=== PATIENT | male | born 1945 | race Caucasian/White ===

== ENCOUNTER → 2023-07-19 | Emergency (ER) | payer BC, OTHER ==
[~2023-07-19] MED LIST: ACETAMINOPHEN 325 MG TABLET ONE; NA CHLORIDE 0.9% 1,000 ML ONE
[2023-07-19 09:00] LABS: Absolute Lymphocytes (CBC) 0.4 K/uL (0.7-4.9); Hematocrit 39.2 % (39.6-49.0); Lymphocytes % 6.4 % (15.3-44.8); MPV 8.2 fL (7.6-11.3); Platelets 205 thou/uL (152-406); RBC Red Blood Cell Count 3.95 M/uL (4.33-5.43)
--- NOTE | 2023-07-19 09:07 | RAD REPORT ---
EXAM DESCRIPTION: CT - Head Brain Wo Cont - 07/19/2023 8:56 am CLINICAL HISTORY: AMS COMPARISON: No comparisons TECHNIQUE: All CT scans are performed using dose optimization technique as appropriate and may inclu de automated exposure control or mA/KV adjustment according to patient size. FINDINGS: No intracranial hemorrhage, hydrocephalus or extra-axial fluid collection.No areas of brai n edema or evidence of midline shift. Mild chronic small vessel ischemic changes. The paranasal sinuses and mastoids are clear. The calvarium is intact. IMPRESSION: No acute intracranial abnormality.
[2023-07-19 09:14] LABS: Albumin 2.9 g/dL (3.4-5.0); Bilirubin Total 0.9 mg/dL (0.2-1.0); Potassium 3.5 mEq/L (3.5-5.1); Protein, Total 6.4 g/dL (6.4-8.2); Troponin High Sensitivity 25.3 pg/mL (<58.9)
[2023-07-19 09:15] LABS: Protime INR 1.03
[2023-07-19 09:24] LABS: Specific Gravity 1.016 (1.005-1.030); Urine Bacteria None Seen /HPF (<20); Urine Bilirubin NEGATIVE (Negative); Urine Blood Negative (Negative); Urine Clarity Clear (Clear); Urine Color Light-Yellow (Yellow); Urine Glucose NEGATIVE (Negative); Urine Mucus Slight /HPF (None Seen); Urine Protein NEGATIVE (Negative); Urine RBC <5 /HPF (None Seen); Urine Urobilinogen 1+ (Normal)
[2023-07-19 09:27] LABS: Blood Morphology Comment NOT SEEN (NOT SEEN); Platelet Estimate ADEQ; White Blood Cell Scan OK (OK)
--- NOTE | 2023-07-19 09:47 | RAD REPORT ---
EXAM DESCRIPTION: RAD - Chest Single View - 07/19/2023 9:36 am CLINICAL HISTORY: AMS/Cough COMPARISON: No comparisons FINDINGS: Lines: None. Lungs: Blunting of the left costophrenic angle probably due to configuration of patient's pericardial fat pad. There is also likely some left basilar atelectasis. No edema or consolidative airspace dise ase. . Pleural: No significant pleural effusions or pneumothorax. Cardiac: The heart size is within normal limits. Mediastinum: Within normal limits. Bones: No acute fractures. Other: None IMPRESSION: No definite acute cardiopulmonary disease. Probable atelectasis at the left lung base .
[2023-07-19 10:10] LABS: SARS-CoV-2 Antigen Rapid Res Positive (Negative)
--- NOTE | 2023-07-19 10:24 | EDPHYS ---
Physician Documentation [facility] Name: Mono Hernandez Age: 77 yrs Sex: Male : 1945 Arrival Date: 07/19/2023 Time: 07:43 Bed 3 Private MD: ED Physician Bernarda Castanon HPI: 07/19 08:31 This 77 yrs old Male presents to ER via EMS with complaints of Altered Mental Status, sp3 Cough, unsteady gait. 08:31 77-year-old male with unknown past medical history presents via EMS for altered mental sp3 status, unsteady gait and cough. Patient had recent fall with broken ribs and vertebrae and was discharged to home. Son reports the above symptoms and activated EMS. Currently we do not have patient's past medical history or medication list as patient has no prior history at this facility. History, physical and ROS are limited secondary to current altered mental status/probable chronic dementia. We will be able to obtain further history once son arrives to the ED. Will add on any with the pertinent workup and/or history at that time.. Historical: - Allergies: 09:00 No Known Allergies; kc6 - Home Meds: 09:00 hydrocodone-acetaminophen 5-325 mg Oral tablet 1 tab every 6 hours for pain [Active]; kc6 aspirin 81 mg Oral tablet, delayed release (enteric coated) 1 tab daily [Active]; atorvastatin 10 mg oral tablet 1 tab daily [Active]; lisinopril 10 mg Oral tablet 1 tab daily [Active]; nifedipine 60 mg Oral Tablet, Extended Release 24 hr 1 tab daily [Active]; - PMHx: 09:00 Hypertensive disorder; Myocardial infarction; kc6 - PSHx: 09:00 Stented artery; kc6 - Immunization history:: Adult Immunizations unknown. - Social history:: Smoking status: unknown. ROS: 08:33 Unable to obtain ROS due to altered mental status, baseline dementia, sp3 Exam: 08:33 Constitutional: This is a well developed, well nourished patient who is awake, alert, sp3 and in no acute distress. Head/Face: Normocephalic, atraumatic. Eyes: Pupils equal round and reactive to light, extra-ocular motions intact. Lids and lashes normal. Conjunctiva and sclera are non-icteric and not injected. Cornea within normal limits. Periorbital areas with no swelling, redness, or edema. Neck: Trachea midline, no thyromegaly or masses palpated, and no cervical lymphadenopathy. Supple, full range of motion without nuchal rigidity, or vertebral point tenderness. No Meningismus. Abdomen/GI: Soft, non-tender, with normal bowel sounds. No distension or tympany. No guarding or rebound. No evidence of tenderness throughout. Back: No spinal tenderness. No costovertebral tenderness. Full range of motion. Skin: Warm, dry with normal turgor. Normal color with no rashes, no lesions, and no evidence of cellulitis. MS/ Extremity: Pulses equal, no cyanosis. Neurovascular intact. Full, normal range of motion. 08:33 Chest/axilla: Mild grimace to chest palpation. Patient is tachycardic to 110. Mild cough noted with rhonchi and no wheezing. Mental status is limited. Patient is awake, alert and looks around however does not speak. Patient is moving all extremities and no notable unilateral weakness is currently observed.. 08:36 ECG was reviewed by the Attending Physician. EKG demonstrates sinus tachycardia at 110 sp3 bpm with normal intervals, leftward axis, poor R wave progression and nonspecific diffuse ST/T changes without evidence of acute ischemia. Vital Signs: 08:18 BP 155 / 87; Pulse 110; Resp 16 S; Temp 100.1(O); Pulse Ox 97% on R/A; kc6 09:00 Weight 79.38 kg (R); Height 6 ft. 3 in. ; kc6 09:11 BP 147 / 83; Pulse 102; Resp 20 S; Pulse Ox 98% on R/A; kc6 10:05 BP 136 / 78; Pulse 99; Resp 17 S; Temp 99.7(O); Pulse Ox 98% on R/A; kc6 09:00 Body Mass Index 21.87 (79.38 kg, 190.5 cm) kc6 MDM: 08:00 Patient medically screened. sp3 08:34 Data reviewed: vital signs, nurses notes. ED course: 77-year-old male with PMH unknown sp3 but probable dementia now with altered mental status, unsteady gait at home and cough. Differential diagnosis is broad and includes sepsis, pneumonia, intracranial event, delayed subdural from his fall, electrolyte abnormality, dehydration, among others. Workup will be broad including CT scan of the head, laboratory values, chest x-ray, EKG, urine analysis and initial treatment will include normal saline bolus given his tachycardia and possible sepsis. Cultures and lactate are also pending.. 10:23 ED course: Vital signs improved with heart rate and temperature now normal. Patient is sp3 COVID-19 positive. Due to his age and comorbidities coupled with productive cough, we will place patient on antibiotics as well to prevent secondary infection. Patient will be discharged and he can follow-up with his existing physician team.. 07/19 08:28 Order name: Blood Culture Adult (2) 3 07/19 08:28 Order name: CBC with Diff; Complete Time: 09:30 3 07/19 08:28 Order name: CMP; Complete Time: 09:3 07/19 08:28 Order name: Lactate w/ 2H reflex if indic.; Complete Time: 09: 3 07/19 08:28 Order name: Protime (+inr); Complete Time: 09:3 07/19 08:28 Order name: Urinalysis w/ reflexes; Complete Time: 09:3 07/19 08:29 Order name: Troponin High Sensitivity; Complete Time: 09: sp3 07/19 09:27 Order name: CBC Smear Scan; Complete Time: 09:30 EDMS 07/19 09:31 Order name: Flu; Complete Time: 10:14 sp3 07/19 09:31 Order name: SARS RAPID; Complete Time: 10:14 sp3 07/19 08:28 Order name: Chest Single View XRAY; Complete Time: 09:58 3 07/19 08:31 Order name: CT Head Brain wo Cont; Complete Time: 09: sp3 07/19 08:28 Order name: EKG; Complete Time: 08:29 sp3 07/19 08:28 Order name: Cardiac monitoring; Complete Time: 08:3 07/19 08:29 Order name: EKG - Nurse/Tech; Complete Time: 08:3 07/19 08:29 Order name: IV Saline Lock - Large Bore; Complete Time: 08:3 07/19 08:29 Order name: Labs collected and sent; Complete Time: 08:48 3 07/19 08:29 Order name: O2 Per Protocol; Complete Time: 08:31 sp3 07/19 08:29 Order name: O2 Sat Monitoring; Complete Time: 08:31 sp3 07/19 08:29 Order name: Vital Signs; Complete Time: 08:31 sp3 07/19 08:31 Order name: Cath: Cath UA; Complete Time: 09:11 sp3 07/19 09:58 Order name: Recheck Vital Signs; Complete Time: 10:06 sp3 Administered Medications: 09:07 Drug: NS 0.9% IV 1000 ml IV at 1000 ml once Route: IV; Rate: 1000 ml; Site: right kc6 antecubital; 09:38 Drug: Acetaminophen PO 650 mg PO once Route: PO; kc6 10:06 Follow up: Response: No adverse reaction; Temperature is decreased kc6 Disposition Summary: 07/19/23 10:24 Discharge Ordered Notes: Location: Home sp3 Condition: Stable sp3 Diagnosis - Pneumonia due to SARS-associated coronavirus sp3 Followup: sp3 - With: Private Physician - When: Upon discharge from the Emergency Department - Reason: Continuance of care Discharge Instructions: - Discharge Summary Sheet sp3 - COVID-19 sp3 - 10 Things You Can Do to Manage Your COVID-19 Symptoms at Home - [facility] (01/09/2021) sp3 Forms: - Medication Reconciliation Form sp3 - Thank You Letter sp3 - Antibiotic Education sp3 - Prescription Opioid Use sp3 - Patient Portal Instructions sp3 - Leadership Thank You Letter sp3 Prescriptions: - levofloxacin 500 mg Oral tablet - take 1 tablet ORAL route once daily for 7 days; 7 tablet; Refills: 0, Product sp3 Selection Permitted Signatures: Dispatcher [employer] Bernarda Cristina MD MD sp3 Iris Chadwick RN RN kc6 Corrections: (The following items were deleted from the chart) 09:06 08:20 Allergies: Unable to obtain; kc6 kc6 09:06 08:20 Home Meds: Unable to obtain; kc6 kc6 09: 08:20 PMHx: Unable to Obtain; kc6 kc6 09: 08:20 PSHx: Unable to Obtain; kc6 kc6
--- NOTE | 2023-07-19 10:24 | ER ---
Nurse's Notes [facility] Name: Mono Hernandez Age: 77 yrs Sex: Male : 1945 Arrival Date: 07/19/2023 Time: 07:43 Bed 3 Private MD: Diagnosis: Pneumonia due to SARS-associated coronavirus Presentation: 07/19 08:18 Chief complaint: EMS states: pt fell about a week ago and was diagnosed with broken kc6 ribs on the left side and broken vertebrae. son called EMS today for AMS and unsteady gait. states he is not acting his usual self. BGL en route 212. Coronavirus screen: At this time, the client does not indicate any symptoms associated with coronavirus-19. Ebola Screen: No symptoms or risks identified at this time. Initial Sepsis Screen: Does the patient meet any 2 criteria? Altered Mental Status. HR > 90 bpm. Does the patient have a suspected source of infection? No. Patient's initial sepsis screen is negative. Risk Assessment: Do you want to hurt yourself or someone else? Patient reports no desire to harm self or others. Onset of symptoms was July 19, 2023. 08:18 Method Of Arrival: EMS kc6 08:18 Acuity: QI 3 kc6 Triage Assessment: 08:20 General: Appears in no apparent distress. comfortable, well groomed, well developed, kc6 Behavior is calm, cooperative, appropriate for age. EENT: No signs and/or symptoms were reported regarding the EENT system. Neuro: Level of Consciousness is awake, alert, obeys commands. Cardiovascular: Capillary refill < 3 seconds Rhythm is sinus tachycardia. Respiratory: Airway is patent Trachea midline Respiratory effort is even, unlabored, Respiratory pattern is regular, symmetrical, Parent/caregiver reports the patient having cough that is. GI: No signs and/or symptoms were reported involving the gastrointestinal system. : No signs and/or symptoms were reported regarding the genitourinary system. Derm: No signs and/or symptoms reported regarding the dermatologic system. Skin is intact, is healthy with good turgor, Skin is pink, warm \T\ dry. Musculoskeletal: No signs and/or symptoms reported regarding the musculoskeletal system. Circulation, motion, and sensation intact. Capillary refill < 3 seconds, Range of motion: intact in all extremities. Historical: - Allergies: 09:00 No Known Allergies; kc6 - Home Meds: 09:00 hydrocodone-acetaminophen 5-325 mg Oral tablet 1 tab every 6 hours for pain [Active]; kc6 aspirin 81 mg Oral tablet, delayed release (enteric coated) 1 tab daily [Active]; atorvastatin 10 mg oral tablet 1 tab daily [Active]; lisinopril 10 mg Oral tablet 1 tab daily [Active]; nifedipine 60 mg Oral Tablet, Extended Release 24 hr 1 tab daily [Active]; - PMHx: 09:00 Hypertensive disorder; Myocardial infarction; kc6 - PSHx: 09:00 Stented artery; kc6 - Immunization history:: Adult Immunizations unknown. - Social history:: Smoking status: unknown. Screenin:[address] [facility] ED Fall Risk Assessment (Adult) History of falling in the last 3 months, kc6 including since admission Yes- single mechanical fall (1 pt) Confusion or Disorientation Yes (5 pts) Intoxicated or Sedated No (0 pts) Impaired Gait Yes (1 pt) Mobility Assist Device Used Yes (1 pt) Altered Elimination No (0 pt) Score/Fall Risk Level 3 or more points = High Risk. Abuse screen: Denies threats or abuse. Denies injuries from another. Nutritional screening: No deficits noted. Tuberculosis screening: No symptoms or risk factors identified. Assessment: 08:22 Reassessment: please see triage assessment. [facility] Vital Signs: 08:18 BP 155 / 87; Pulse 110; Resp 16 S; Temp 100.1(O); Pulse Ox 97% on R/A; kc6 09:00 Weight 79.38 kg (R); Height 6 ft. 3 in. ; kc6 09:11 BP 147 / 83; Pulse 102; Resp 20 S; Pulse Ox 98% on R/A; kc6 10:05 BP 136 / 78; Pulse 99; Resp 17 S; Temp 99.7(O); Pulse Ox 98% on R/A; kc6 09:00 Body Mass Index 21.87 (79.38 kg, 190.5 cm) [facility] ED Course: 07:47 Patient arrived in ED. bd 07:56 Bernarda Castanon MD is Attending Physician. sp3 08:18 Iris Chadwick RN is Primary Nurse. kc6 08:20 Triage completed. kc6 08:20 Arm band placed on. kc6 08:21 Patient maintains SpO2 saturation greater than 95% on room air. kc6 08:22 Patient has correct armband on for positive identification. Placed in gown. Bed in low kc6 position. Call light in reach. Side rails up X2. Client placed on continuous cardiac and pulse oximetry monitoring. NIBP monitoring applied. residential monitor on. 08:31 Maintain EMS IV. Dressing intact. Good blood return noted. Site clean \T\ dry. Gauge \T\ parvez 6 site: 20G LAC. 08:48 Inserted saline lock: 20 gauge in right antecubital area, using aseptic technique. kc6 Blood collected. 08:59 CT Head Brain wo Cont In Process Unspecified. EDMS 09:11 Straight cath inserted, using sterile technique, 16 Fr. Specimen obtained. Returned kc6 clear yellow urine. Patient tolerated well. 09:38 Chest Single View XRAY In Process Unspecified. EDMS 09:38 SARS RAPID Sent. kc6 09:38 Flu Sent. kc6 10:12 Notified ED physician of other COVID positive. nj1 11:13 No provider procedures requiring assistance completed. IV discontinued, intact, kc6 bleeding controlled, No redness/swelling at site. Pressure dressing applied. Administered Medications: 09:07 Drug: NS 0.9% IV 1000 ml IV at 1000 ml once Route: IV; Rate: 1000 ml; Site: right kc6 antecubital; 09:38 Drug: Acetaminophen PO 650 mg PO once Route: PO; kc6 10:06 Follow up: Response: No adverse reaction; Temperature is decreased kc6 Medication: 11:13 VIS not applicable for this client. kc6 Outcome: 10:24 Discharge ordered by . sp3 11:13 Discharged to home via wheelchair, with family, kc6 11:13 Condition: improved 11:13 Discharge instructions given to patient, family, Instructed on discharge instructions, follow up and referral plans. medication usage, Demonstrated understanding of instructions, follow-up care, medications, Prescriptions given X 1, 11:13 Patient left the ED. kc6 Signatures: Dispatcher [employer] EDMS Alysa Lehman Setul, MD MD sp3 Iris Chadwick RN RN kc6 Dee Dee Melendez RN RN nj1 Corrections: (The following items were deleted from the chart) 09:06 08:20 Allergies: Unable to obtain; kc6 kc6 09:06 08:20 Home Meds: Unable to obtain; kc6 kc6 08:20 PMHx: Unable to Obtain; kc6 kc6 08:20 PSHx: Unable to Obtain; kc6 kc6
[2023-07-19 12:14] VITALS: BP 136/78; TEMP 99.7; O2SAT 98
--- NOTE | 2023-07-20 17:27 | EKG ---
Test Date: 2023-07-19 Test Time: 08:27:07 [employer]: YAHAIRA MEASUREMENT RESULTS: Intervals: Rate: 109 CT: 168 QRSD: 64 QT: 318 QTc: 428 [place]: P: 53 CT: 168 QRS: -16 T: 61 INTERPRETIVE STATEMENTS: Sinus tachycardia Right atrial enlargement Inferior infarct, age undetermined Anteroseptal infarct, age undetermined Abnormal ECG No previous ECG available for comparison Electronically Signed On 07-20-23 17:23:46 CARE DIRECTOR by Anuj Juárez
== END ==
LOC: ER 07:43
DX: U07.1 COVID-19 (principal); J12.82 Pneumonia due to coronavirus disease 2019; I10 Essential (primary) hypertension; I25.2 Old myocardial infarction; F03.90 Unspecified dementia, unspecified severity, without behavioral disturbance, psychotic disturbance, mood disturbance, and anxiety; Z79.82 Long term (current) use of aspirin
CPT/HCPCS: 36415; 51702; 70450; 71045; 80053; 81001; 83605; 84484; 85025; 85610; 87040; 87804; 87811; 93005; 99285; J7030